=== PATIENT | male | born 1975 | race Two or more races ===

== ENCOUNTER 2025-03-31 22:58 | Emergency (ER) | payer OTHER, SELFPAY ==
--- OUTSIDE RECORDS SUMMARY | 2025-03-31 22:59 | XMS_ITS | Clinical Summary ---
Author Organization [facility] Address [address] [place] [address] Care Team Providers Care Counseling Aide Name Role Phone Pcp, No Primary Care Provider Unavailabl e Allergies No known active allergies Medications lisinopriL (PRINIVIL; ZESTRIL) 30 mg tabletIndications: Hypertension, unspecified type Take 1 Tablet (30 mg) by mouth once daily. 30 Tablet 5 08/01/20 22 Active acetaminophen (TylenoL) 325 mg tablet Take 650 mg by mouth every 6 hours. Max acetaminophen dose: 4000mg in 24 hrs. Active atorvastatin (LIPITOR) 20 mg tabletIndications: Hyperlipidemia, unspecified hyperlipidemia type Take 1 Tablet (20 mg) by mouth once daily. 90 Tablet 3 07/11/20 23 Active DM/p-ephed/acetami noph/doxylam (NYQUIL ORAL) Take by mouth. A ctive artificial tears, peg 400 0.4%-propylene glycol 0.3%, (Systane, propylene glycoL,) ophthalmicIndicati ons:Dry eye Place 1 Drop into both eyes 4 times daily if needed for Dry Eyes. 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 Adjustment disorder with anxiety 11/03/2011 Hypertriglyceridemia 01/18/2010 Vitamin D deficiency 01/18/2010 Hypertension 09/22/2009 Encounters Date Type Department Care Team Description 03/27/2025 Orders Only [facility] Scanner 1 scan: (1-Ord) [facility] RESULTS, 03/27/2025 from Last 3 Months Immunizations Immunization Administration Dates Next Due Tdap 09/26/2018 Family History Medical History Relation Name Comments Hypertension Brother Hypertension Mother Relation Name Status Comments Brother Mother Social History Tobacco Use Types Packs/Day Years Used Date Smoking Tobacco: Former Smokeless Tobacco: Never Tobacco Cessation:Counseling Given: Yes Alcohol Use Standard Drinks/Week Comments Yes 0 (1 standard drink = 0.6 oz pur e alcohol) 1-2 beers per week PHQ-2 Answer Date Recorded PHQ-2 TOTAL SCORE 0 07/12/2022 Social Connections Answer Date Recorded Frequency of Communication with Friends and Fami ly Not on file 09/17/2021 Financial Resource Strain Answer Date R ecorded Difficulty of Paying Living Expenses Not on file 09/17/2021 Difficulty of Paying Living Expenses Not on file 09/17/2021 Sex and Gender Information Value Date Recorded Sex Assigned at Not on file Legal Sex Male 7:42 AM [employer] Gender Identity Not on file Sexual Orientation Not on file Obstetrics History Last Filed Vital Signs Vital Sign Reading Time Taken Comments Blood Pressure 118/86 07/05/2023 10:50 AM CDT Pulse 82 04/05/2023 8:08 AM CDT Temperature 36.7 C (98 F) 12/06/2018 2:22 PM CDT Respiratory Rate 16 11/20/2019 8:13 AM [employer] Oxygen Saturation 97% 04/05/2023 8:08 AM CDT Inhaled Oxygen Concentration - - Weight 98.4 kg (217 lb) 07/05/2023 10:50 AM CDT Height 174 cm (5' 8.5) 07/05/2023 10:50 AM CDT Body Mass Index 32.51 07/05/2023 10:50 AM CDT Plan of Treatment Health Maintenance Due Date Last Done Comments HIV for age 15-65 1988 Hepatitis B series for 19+ ( 1 of 3 - 19+ 3-dose series) 1992 Colonoscopy through age 75 2018 Pneumococcal series for age 50+ (1 of 1 - PCV) 2023 Zoster (shingles) series for age 50+ (1 of 2) 2023 Depression screening for age 12+ 07/12/2023 07/12/2022, 08/30/2020, 08/27/2020, Additional history exists COVID-19 vaccine series ( season) 2024 BMI (ht and wt on same day) for age 18+ 07/05/2024 07/05/2023, 11/10/2020, 08/27/2020, Additional history exists Influenza Vaccine (#1) 2025 Lipids for age 45-75 07/05/2028 07/05/2023, 07/05/2023, 08/01/2022, Additional history exists Tetanus booster 09/26/2028 09/26/2018 Hepatitis C screening for ag e 18-79 Completed 08/01/2022 Procedures Procedure Name Priority Date/Time Associated Diagnosis Comments SCAN-LABORATORY REPORT 03/27/2025 12:00 AM CDT LDL CHOLESTEROL,DIRECT Routine 07/05/2023 10:55 AM CDT Lipid screening ANTI HCV Routine 08/01/2022 8:55 AM [employer] Need for hepatitis C screening test from Last 3 Months or Most Recently Relevant to Health Maintenance Results * SCAN-LABORATORY REPORT (03/27/2025 12:00 AM CDT) Scanner OTHER Final Result * LDL CHOLESTEROL,DIRECT (07/05/2023 10:55 AM CDT) LDL CHOLESTEROL,DI RECT 114 mg/dL 07/05/2023 9:50 PM CDT [facility] PROVIDER ORDERED STATUS RANDOM 07/05/2023 9:50 PM CDT [facility] Blood BLOOD SPECIMEN / Unknown Venipuncture / Unknown 07/05/2023 10:55 AM CDT 07/05/2023 10:57 AM CDT Narrative [facility] - 07/05/2023 9:50 PM CDT Optimal <100 mg/dl Near Optimal 100-129 mg/dl Borderline High 130-159 mg/dl High 160-189 mg/dl Very High >=190 mg/dl Tam Esquivel MD CHEMISTRY Final Res ult [facility] [address] [place] [address], [place] * ANTI HCV (08/01/2022 8:55 AM [employer]) HEPATITIS C ANTIBODY Non-React svitlana Non-React svitlana 08/02/2022 12:34 PM [employer]ER [facility] Comment:Antibodies to HCV no t detected; does not exclude the possibility of exposure to HCV. Blood BLOOD SPECIMEN / Unknown Venipuncture / Unknown 08/01/2022 8:55 AM [employer] 08/01/2022 9:00 AM [employer]ER us Mona BANKS SEND OUTS Final Resu lt [facility] [address] [place] [address], [place] from Last 3 Months or Most Recently Relevant to Health Maintenance Insurance [employer] Care Teams Counseling Aide Relationship Specialty Start Date End Date Pcp, No . PCP - General 08/17/22
[2025-03-31 23:08] VITALS: BP 187/87; PULSE 76; RESP 16; TEMP 36.7; O2SAT 98; BMI 43.9
--- NOTE | 2025-03-31 23:19 | ED.GENADULT ---
HPI - General Adult General Chief complaint: Headache/Migraine Stated complaint: Bad headache Time Seen by Provider: 03/31/25 23:18 History of Present Illness HPI narrative: headache on and off 6 months. got a new rx for metoprolol today and took it, worse headache after taking it. R eye pain and pressure. states was supposed to have head surgery for this in the past but insurance did not cover this. pt does not know any other details about this. denies any current visual or auditory changes. 49-year-old man presenting to the emergency depart with concern of headache. It is sharp and intense posterior occipital to right side of his head. Does have some periorbital component and he is sensitive to light. He has vomited. Had been experiencing some headaches on and off over the last couple of years. Somewhere in this time did receive imaging and was recommended to follow-up for surgery of his brain; not on his eye. Unclear what this diagnosis was. Was seen by primary recently and recommended to begin metoprolol. Today took a singular dosing for the 1st time and had marked increase in his headache after taking this. Headache is described as fairly constant. It is not lancing. He has no loss of sensation over face or extremities. No loss of vision. No rashes and no fever. Looks like has underlying diagnosis of gout having been treated with allopurinol in the past not taking at this time. Otherwise history of hypertension with atorvastatin and lisinopril and now metoprolol. Related Data Home Medications ?Medication ?Instructions ?Recorded ?Confirmed atorvastatin 20 mg tablet 20 mg PO DAILY 03/31/25 03/31/25 atorvastatin 20 mg tablet (Lipitor) 20 mg PO DAILY 03/31/25 03/31/25 lisinopril 20 mg tablet 30 mg PO DAILY 03/31/25 03/31/25 Allergies Allergy/AdvReac Type Severity Reaction Status Date / Time No Known Drug Allergies Allergy Verified 03/31/25 23:10 Review of Systems Status of ROS: Reports: 6 or more systems reviewed and unremarkable except as noted in History and below Exam Narrative: Exam Narrative: Pleasant. Looks very uncomfortable. Mild conjunctival injection right greater than left. Pupils are 2-3 mm equal and briskly reactive. Extraocular movements are full. Cranial nerves 2-12 to be intact. Exquisitely sensitive to palpation over the posterior right neck and generally posterior neck and then up into the right occipital area of his head. Moving all extremities without difficulty. Full strength. Well-perfused. Heart in regular rate and rhythm. Lungs appear to be clear. Const: Vital Signs, click to edit/add: Vital Signs - 24 hr 03/31/25 23:08 Temperature 98.1 F Pulse Rate [Pulse Oximeter] 76 Respiratory Rate 16 Blood Pressure [Ri ght Upper Arm] 187/87 H Pulse Oximetry 98 Oxygen Delivery Me thod Room Air Documenting provider has reviewed patient's vital signs: yes Course Vital Signs Vital signs: Initial Vital Signs Temperature 98.1 F 03/31/25 23:08 Temperature Source Temporal Artery Scan 03/31/25 23:08 Pulse Rate 76 03/31/25 23:08 Respiratory Rate 16 03/31/25 23:08 Blood Pressure 187/87 H 03/31/25 23:08 Blood Pressure Mean 120 H 03/31/25 23:08 Blood Pressure Position Sitting 03/31/25 23:08 Pulse Oximetry 98 03/31/25 23:08 Oxygen Delivery Method Room Air 03/31/25 23:08 Vital Signs Temperature 98.1 F 03/31/25 23:08 Pulse Rate 76 03/31/25 23:08 Respiratory Rate 16 03/31/25 23:08 Blood Pressure 187/87 H 03/31/25 23:08 Pulse Oximetry 98 03/31/25 23:08 Oxygen Delivery Method Room Air 03/31/25 23:08 Temperature 98.1 F 03/31/25 23:08 Pulse Rate 76 03/31/25 23:08 Respiratory Rate 16 03/31/25 23:08 Blood Pressure 187/87 H 03/31/25 23:08 Pulse Oximetry 98 03/31/25 23:08 Oxygen Delivery Method Room Air 03/31/25 23:08 Medical Decision Making MDM Narrative Medical decision making narrative: Given severity of headache and concern of intracranial abnormality I at this time of night I am able to do a CT. I do not think there is a occlusive thrombus occurring here but certainly is possible. I would be concerned that prior diagnosis had been an aneurysm that this might be bleeding. Does not seem to be occipital neuralgia. This diagnosis is unfamiliar to him. Otherwise would just treat for headache. Until verify whether not there is bleeding occurring would not treat with ketorolac although likely low risk of bleeding. Initiating treatment with IV fluids morphine diphenhydramine. This could certainly be hypertensive urgency/emergency as well. Screening labs in this regard. Unsure where pressure was prior to taking metoprolol; significant drop in pressure can certainly contribute to this headache I would think as well. 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 Recommendations from visit on May of 2023 were to seal fistula by performing a craniotomy. He had been experiencing daily headache at that time exacerbated by leaning forward like timing issues. Exacerbated also in the past by Valsalva episodes. Anticipating sign off pending labs, effective treatment and results of imaging at change of shift. Medical Records Medical records reviewed: Yes I reviewed the patient's medical records Discharge Plan Discharge Prescriptions: No Action atorvastatin 20 mg tablet 20 mg PO DAILY lisinopril 20 mg tablet 30 mg PO DAILY atorvastatin [Lipitor] 20 mg tablet 20 mg PO DAILY Follow Up/Referrals: Leah Bell MD [Primary Care Provider, Family Practice]
--- NOTE | 2025-03-31 23:32 | CRLHL7_ITS ---
For Patients: As a result of the Century Cures Act, medical imaging exams and procedure reports are released immediately into your electronic medical record. You may view this report before your referring provider. If you have questions, please contact your health care provider. INDICATION: Severe right and posterior headache.. TECHNIQUE: CT head without contrast. COMPARISON: None. FINDINGS: CSF spaces: Within normal limits for age. Brain parenchyma and extra-axial spaces: The forrest-white differentiation is normal. No sign of mass, hemorrhage, or midline shift. No extra-axial fluid collection. Skull base and calvarium: The visualized paranasal sinuses and mastoid air cells demonstrate no acute or significant findings. The visualized orbits are grossly unremarkable. No skull fractures. IMPRESSION: No acute intracranial abnormality on this noncontrast study. Please note that all CT scans at this facility use dose modulation, iterative reconstruction, and/or weight-based dosing when appropriate to reduce radiation dose to as low as reasonably achievable. Dictated by Amrik Rod MD @ 04/01/2025 12:13:46 AM (Electronically Signed)
[2025-03-31 23:50] LABS: Troponin, Point-of-Care* 0.00 ng/ml (0.01-0.04)
[2025-03-31] MEDS: MORPHINE 4 MG/ML INJ IVP (23:55)
[2025-03-31] MEDS: ONDANSETRON 2 MG/ML inj 4 MG IVP (23:55)
[2025-03-31 23:56] LABS: Hematocrit* 50.2 % (37.0-53.0); Hemoglobin* 17.7 gm/dL (13.5-17.5); Immature Granulocytes Abs Auto 0.15 K/uL (0.00-0.30); Immature Granulocytes Pct Auto 2.0 %; Lymphocytes Absolute Auto 1.68 K/uL (0.90-2.90); Mean Corpuscular HGB Conc 35 gm/dL (32-36); Mean Corpuscular Hemoglobin 30 pg (26-34); Mean Corpuscular Volume 86 fL (80-100); RDW Coefficient of Variation % 12.1 % (11.5-15.5); Red Blood Count* 5.84 m/uL (4.30-5.90); White Blood Count* 7.43 K/uL (4.50-11.00)
[2025-03-31 23:59] LABS: Slide Review Reflex No
[2025-04-01] VITALS (7 sets, daily range): BP systolic 140–161; BP diastolic 96–102; PULSE 62–73; O2SAT 92–96
[2025-04-01 00:06] LABS: Chloride* 104 mmol/L (96-114)
[2025-04-01 00:07] LABS: Potassium* 4.0 mmol/L (3.6-5.1); Sodium* 136 mmol/L (135-149)
[2025-04-01 00:09] LABS: Blood Urea Nitrogen* 17 mg/dL (7-30); Creatinine* 1.1 mg/dL (0.5-1.5); Est. Creatinine Clearance* 56.19; Estimated Glomerular Filt Rate 81 ml/min
[2025-04-01 00:10] LABS: Anion Gap 10 mEq/L (7-15); Calcium* 9.3 mg/dL (8.4-10.6); Carbon Dioxide* 22 mmol/L (20-32); Glucose* 136 mg/dL (60-115)
[2025-04-01 00:18] LABS: Appearance Urine Clear (Clear)
[2025-04-01 00:25] LABS: NT Pro B Type NatriureticPept* < 20 pg/mL (See Note)
== END 2025-04-01 01:18 | disposition home or self-care (01) ==
PROVIDERS: Emergency Provider Family Medicine; PCP Family Medicine
DX: R51.9 Headache, unspecified (principal); Z79.899 Other long term (current) drug therapy
CPT/HCPCS: 36415; 70450; 80048; 81001; 83880; 84484; 85025; 96374; 96375; 99284; J1100; J1200; J1885; J2270; J2405; J7030